=== PATIENT | male | born 1995 | race Caucasian/White ===

== ENCOUNTER 2021-12-18 20:23 | Observation (INO) | payer OTHER ==
[~2021-12-18] VITALS: Ht 182.9 cm; Wt 106.6 kg
[2021-12-18 20:47] LABS: HEMOGLOBIN 17.1 gm/dl (14.0-17.5); RED BLOOD COUNT 5.51 M/UL (4.20-5.50); WHITE BLOOD COUNT 12.2 K/UL (4.5-11.0)
[2021-12-18 21:04] LABS: BUN/CREATININE RATIO 20 (0-10)
--- NOTE | 2021-12-19 13:14 | NUR ---
[place] REQUESTED TO SPEAK WITH SURGEON. SURGEON WAS CALLED AT 1313 AND SURGEON STATES HE WOULD BE COMING TO SEE THE PT IN A FEW MINUTES. STATES PT CAN HAVE A WEEK OFF FROM WORK.
== END 2021-12-19 13:29 | disposition home or self-care (01) ==
LOC: ER1 20:23 → CDU 12-19 01:56 → M/S 12-19 01:56
PROVIDERS: Family Medicine; ADMIT Surgery
DX: K35.80 Unspecified acute appendicitis (principal)
CPT/HCPCS: 71045; 80053; 81001; 83690; 85025; 96374; 96375; 96376; 99285; G0378; J1100; J1885; J1956; J2001; J2250; J2270; J2405; J2704; J2710; J3010; Q9967